=== PATIENT | male | born 1990 | race Caucasian/White ===

== ENCOUNTER → 2020-08-03 | Outpatient (CLI) | payer OTHER ==
[2020-08-03 23:08] LABS: Basophils # (A) 0.05 X 10*3/uL (0.00-0.10); Basophils % (A) 0.5 %; Eosinophils % (A) 1.9 %; HCT 46.7 % (39.6-50.0); Lymphocytes # (A) 2.63 X 10*3/uL (0.90-5.00); Lymphocytes % (A) 24.7 %; MCH 31.9 pg (27.0-32.0); MCHC 34.3 g/dL (32.0-37.0); MCV 93.2 fL (80.0-97.0); Mean Platelet Volume 11.3 fL (9.5-12.2); Monocytes # (A) 1.03 X 10*3/uL (0.20-1.00); Monocytes % (A) 9.7 %; Neutrophils % (A) 62.9 %; Platelet Count 213 X 10*3/uL (140-440); RBC 5.01 X 10*6/uL (4.40-5.60); RDW 12.2 % (11.5-14.5); WBC 10.64 X 10*3/uL (4.50-10.00)
[2020-08-04 06:07] LABS: African American GFR (CKD) 94.1 (60.0-200.0); Albumin 5.2 g/dL (3.80-4.90); Anion Gap 13.4 mmol/L (4.00-12.00); BUN/Creat Ratio 17.5 Ratio (12.00-20.00); Calcium 10.1 mg/dL (8.7-10.3); Carbon Dioxide 23.6 mmol/L (21.6-31.8); Globulin 2.6 g/dL (1.6-3.3); Non-African American GFR(CKD) 81.2 (60.0-200.0); Potassium 4.1 mmol/L (3.5-5.5); Total Bilirubin 0.6 mg/dL (0.3-1.2); Total Protein 7.8 g/dL (6.2-8.2); Urine Alcohol Negative (Negative); Urine Barbiturate Negative (Negative); Urine Cocaine Negative (Negative); Urine Methadone Negative (Negative); Urine Opiates Negative (Negative); Urine Phencyclidine Negative (Negative)
== END | disposition home or self-care (01) ==
LOC: LABWHC1 16:26
PROVIDERS: ATTEND Internal Medicine
DX: F98.8 Other specified behavioral and emotional disorders with onset usually occurring in childhood and adolescence (principal)
CPT/HCPCS: 36415; 80053; 80306; 82607; 84443; 85025

== ENCOUNTER → 2020-10-27 | Outpatient (CLI) | payer OTHER ==
[2020-10-28 00:34] LABS: Insulin Level 16.2 mIU/mL (3.0-25.0)
[2020-10-28 01:12] LABS: Hemoglobin A1C 4.5 % (4.0-6.0)
[2020-10-28 01:34] LABS: Hepatitis A Antibody IgM Non-Reactive (Non-Reactive); Hepatitis B Core IgM Non-Reactive (Non-Reactive); Hepatitis B Surface Antigen Non-Reactive (Non-Reactive); Hepatitis C IgG Antibody Non-Reactive (Non-Reactive)
[2020-10-28 22:04] LABS: African American GFR (CKD) 104.6 (60.0-200.0); Albumin 5.2 g/dL (3.80-4.90); Albumin/Globulin Ratio 2.26 (1.60-3.17); Anion Gap 18.4 mmol/L (4.00-12.00); BUN/Creat Ratio 16.36 Ratio (12.00-20.00); C Reactive Protein, High Sens 1.23 mg/L (0.000-3.000); Calcium 10.4 mg/dL (8.7-10.3); Carbon Dioxide 19.6 mmol/L (21.6-31.8); Chol/HDL Ratio 2.96; Globulin 2.3 g/dL (1.6-3.3); LDL Cholesterol,Calculated 90.4 mg/dL (0.0-131.0); Non-African American GFR(CKD) 90.2 (60.0-200.0); Potassium 4.9 mmol/L (3.5-5.5); Total Bilirubin 0.6 mg/dL (0.3-1.2); Total Protein 7.5 g/dL (6.2-8.2); VLDL Calculation 42.6 mg/dL (5.00-40.00)
[2020-10-29 12:27] LABS: Ceruloplasmin 24.4 mg/dL (20.0-60.0)
== END | disposition home or self-care (01) ==
LOC: LABWHC1 15:33
PROVIDERS: ATTEND Internal Medicine
DX: E66.01 Morbid (severe) obesity due to excess calories (principal); R73.9 Hyperglycemia, unspecified; R74.01 Elevation of levels of liver transaminase levels; Z68.37 Body mass index [BMI] 37.0-37.9, adult
CPT/HCPCS: 36415; 80053; 80061; 80074; 82103; 82390; 82525; 83036; 83516; 83525; 83540; 84550; 86038; 86141

== ENCOUNTER 2022-09-10 17:51 | Emergency (ER) | payer OTHER ==
[2022-09-10] MEDS ORDERED: FLUORESCEIN STRIPS 1 MG STRIP LEFT EYE ONE (18:18)
[2022-09-10] MEDS ORDERED: PROPARACAINE 0.5% OPHTH DROPS 15 ML BTL LEFT EYE STA (18:18)
--- NOTE | 2022-09-10 18:40 | ED ---
Eye Problem HPI - General Chief complaint: Eye Problems Stated complaint: Eye Infection, Sent by Urgent Clinic Time Seen by Provider: 09/10/22 18:11 Source: patient Mode of arrival: ambulatory Limitations: no limitations - History of Present Illness Initial comments: 32-year-old male presenting with chief complaint of left eye discomfort. Symptoms started about one week ago. Patient states that he woke up 7/8 with eye discomfort, swelling, and watering. A friend called in some eyedrops and he has been using them 4 times a day. Patient is having continued swelling and redness of the eye. He denies pain. He denies any injury to the eye. He denies foreign body sensation. He admits to watering but no purulent discharge. No blurriness or vision changes. He does wear contact lenses, he has not been wearing contact lenses for the duration of his symptoms. He was evaluated at urgent care earlier today and sent to the ER for further evaluation - Related Data Previous Rx's Medication Instructions Recorded Sulfamethox-Tmp 800-160Mg [Bactrim 1 tab PO Q12HR 10 Days #20 tab 09/10/22 DS 800-160 mg] Allergies Allergy/AdvReac Type Severity Reaction Status Date / Time No Known Allergies Allergy Verified 09/10/22 18:03 Review of Systems ROS Statement: Those systems with pertinent positive or pertinent negative responses have been documented in the HPI. ROS Other: All systems not noted in ROS Statement are negative. Past Medical History Past Medical History: No Reported History History of Any Multi-Drug Resistant Organisms: None Reported Additional Past Surgical History / Comment(s): wrist surgery Past Psychological History: No Psychological Hx Reported Smoking Status: Current every day smoker Past Alcohol Use History: Occasional Past Drug Use History: None Reported General Exam Limitations: no limitations General appearance: alert, in no apparent distress Head exam: Present: atraumatic, normocephalic, normal inspection Expanded Eyelids: Erythema: Left, Swelling: Left Pupils: Regular, Round: Bilateral, Reactive: Bilateral Sclera/Conjunctival: Hemorrhage: Left Visual acuity (R) = 20/: 25 Visual acuity (L) = 20/: 100 (Patient is not currently wearing his left contact lens, states he is unable to see without this) Neck exam: Present: normal inspection, full ROM Respiratory exam: Present: respiratory distress Neurological exam: Present: alert, oriented X3, CN II-XII intact Psychiatric exam: Present: normal affect, normal mood Skin exam: Present: warm, dry, intact, normal color. Absent: rash Medical Decision Making - Medical Decision Making Was pt. sent in by a medical professional or institution ([facility], RN X RAY, urgent care, hospital, or intermediate...) When possible be specific @ -No Did you speak to anyone other than the patient for history (EMS, parent, family, police, friend...)? What history was obtained from this source @ -No Did you review nursing and triage notes (agree or disagree)? Why? @ -I reviewed and agree with nursing and triage notes Were old charts reviewed (outside hosp., previous admission, EMS record, old EK G, old radiological studies, urgent care reports/EKG's, intermediate records)? Report findings @ -No old charts were reviewed Differential Diagnosis (chest pain, altered mental status, abdominal pain women, abdominal pain men, vaginal bleeding, weakness, fever, dyspnea, syncope, headache, dizziness, GI bleed, back pain, seizure, CVA, palpatations, mental health, musculoskeletal)? @ -Differential includes corneal abrasion, corneal ulcer, preseptal cellulitis, conjunctivitis, this is not an all inclusive list EKG interpreted by me (3pts min.). @ -As above X-rays interpreted by me (1pt min.). @ -None done CT interpreted by me (1pt min.). @ -None done U/S interpreted by me (1pt. min.). @ -None done What testing was considered but not performed or refused? (CT, X-rays, U/S, labs)? Why? @ -None What meds were considered but not given or refused? Why? @ -None Did you discuss the management of the patient with other professionals (professionals i.e. [facility], RN X RAY, lab, RT, psych nurse, public health social worker, cnc cutting operator, teacher, ammunition officer, business analyst project manager)? Give summary @ -No Was smoking cessation discussed for >3mins.? @ -No Was critical care preformed (if so, how long)? @ -No Were there social determinants of health that impacted care today? How? (Homelessness, low income, unemployed, alcoholism, drug addiction, transportation, low edu. Level, literacy, decrease access to med. care, assisted, rehab)? @ -No Was there de-escalation of care discussed even if they declined (Discuss DNR or withdrawal of care, Hospice)? DNR status @ -No What co-morbidities impacted this encounter? (DM, HTN, Smoking, COPD, CAD, Cancer, CVA, ARF, Chemo, Hep., AIDS, mental health diagnosis, sleep apnea, morbid obesity)? @ -None Was patient admitted / discharged? Hospital course, mention meds given and route, prescriptions, significant lab abnormalities, going to OR and other pertinent info. @ -32-year-old male presenting with chief complaint of swelling and redness to the left eye ongoing for over a week. He is currently on polymyxin B eyedrops. On physical examination there is painless swelling in the periorbital region. He has fully intact extraocular motions. There is a subconjunctival hemorrhage noted. No evidence of hyphema. No evidence of uptake on fluorescein staining. Visual acuity is diminished in the left eye, however the patient is not currently wearing his left contact lens so this is to be expected. Patient will be treated for preseptal cellulitis with Bactrim. Follow-up with PCP. Report back to ER with any new or worsening symptoms. Discussed return parameters and answered all questions. Patient conveyed verbal understanding and agreed to the plan. I discussed this case in detail with my attending Dr. Abdi Undiagnosed new problem with uncertain prognosis? @ -No Drug Therapy requiring intensive monitoring for toxicity (Heparin, Nitro, Insulin, Cardizem)? @ -No Were any procedures done? @ -No Diagnosis/symptom? @ -Preseptal cellulitis Acute, or Chronic, or Acute on Chronic? @ -Acute Uncomplicated (without systemic symptoms) or Complicated (systemic symptoms)? @ -Uncomplicated Side effects of treatment? @ -No Exacerbation, Progression, or Severe Exacerbation? @ -No Poses a threat to life or bodily function? How? (Chest pain, [place], [place], pneumonia, PE, COPD, DKA, ARF, appy, cholecystitis, CVA, Diverticulitis, Homicidal, Suicidal, threat to staff... and all critical care pts) @ - Disposition Clinical Impression: Preseptal cellulitis Disposition: HOME SELF-CARE Condition: Good Instructions (If sedation given, give patient instructions): Periorbital Cellulitis in Adults (ED) Additional Instructions: Follow-up with PCP. Report back to ER with any new or worsening symptoms. Take medication as prescribed. Prescriptions: Sulfamethox-Tmp 800-160Mg [Bactrim DS 800-160 mg] 1 tab PO Q12HR 10 Days #20 tab Is patient prescribed a controlled substance at d/c from ED?: No Referrals: Nonstaff,Physician [Primary Care Provider] - 1-2 days Time of Disposition: 19:05
[2022-09-10] MEDS ORDERED: SULFAMETHOX-TMP 800-160MG 1 EACH TAB PO STA (19:06)
[2022-09-10 19:19] VITALS: BP 158/117; PULSE 78; RESP 18
[2022-09-10 19:37] VITALS: TEMP 98.7
== END 2022-09-10 19:32 | disposition home or self-care (01) ==
LOC: EC 17:51
DX: L03.213 Periorbital cellulitis (principal); F17.200 Nicotine dependence, unspecified, uncomplicated
CPT/HCPCS: 99283